=== PATIENT | female | born 1935 | race Caucasian/White ===

== ENCOUNTER 2018-01-23 15:33 | Emergency (ER) | payer MEDICARE ==
[2018-01-23 16:15] LABS: APPEARANCE CLEAR (CLEAR); BILIRUBIN NEGATIVE (NEGATIVE); COLOR YELLOW (YELLOW); GLUCOSE NEGATIVE (NEGATIVE); KETONE NEGATIVE (NEGATIVE); NITRITE NEGATIVE (NEGATIVE); PROTEIN NEGATIVE (NEGATIVE); UROBILINOGEN NORMAL (NORMAL)
[2018-01-23 16:18] LABS: BACTERIA FEW /hpf (NONE SEEN); EPITHELIAL CELLS 0-5 /hpf (0-5); WHITE CELLS - URINE 0-5 /hpf (0-5)
== END 2018-01-23 17:06 | disposition home or self-care (01) ==
LOC: D.ER 15:33
PROVIDERS: Emergency Medicine
DX: M54.5 Low back pain (principal); N39.0 Urinary tract infection, site not specified; F17.200 Nicotine dependence, unspecified, uncomplicated

== ENCOUNTER 2019-01-07 11:20 | Inpatient (IN) | payer MEDICARE, BC ==
[~2019-01-07] VITALS: Ht 162.6 cm; Wt 47.6 kg
[2019-01-07 15:04] LABS: BASOPHILS 0.4 % (0-2); EOSINOPHILS 7.2 % (0-7); HEMATOCRIT 39.8 % (36.0-48.0); HEMOGLOBIN 13.2 g/dL (12-16); IMMATURE GRANULOCYTES 0.3 % (0-5); LYMPHOCYTES 27.1 % (15-50); MCH 31.3 pg (26.0-34.0); MCHC 33.2 g/dL (31.0-37.0); MCV 94.3 fL (80.0-100.0); MONOCYTES 10.1 % (2-11); NEUTROPHILS 54.9 % (40-80); PLATELET COUNT 261 10x3/uL (130-400); RBC 4.22 10x6/uL (4.00-5.40); WBC 11.3 10x3/uL (4.8-10.8)
[2019-01-07 15:11] LABS: APTT 25.3 SECONDS (22.8-39.4); INR 1.1 (0.85-1.17); PROTIME 13.7 SECONDS (11.6-15.0)
[2019-01-07 15:16] LABS: ALBUMIN 3.3 g/dL (3.4-5.0); ANION GAP 11.2 mmol/L (8-16); BILIRUBIN - TOTAL 0.84 mg/dL (0.2-1.3); CALCIUM 8.6 mg/dL (8.5-10.1); CARBON DIOXIDE 27.7 mmol/L (21.0-32.0); CREATININE - SERUM 1.1 mg/dL (0.6-1.3); POTASSIUM - SERUM 3.9 mmol/L (3.5-5.1); PROTEIN - SERUM 6.8 g/dL (6.4-8.2)
--- NOTE | 2019-01-07 18:49 | NUR ---
REPORT CALLED TO [facility].
--- NOTE | 2019-01-07 20:00 | NUR ---
PT ARRIVED TO FLOOR VIA STRETCHER. IV LEFT FA SL. HOB 30 DEGREES. MO ON. PT REFUSES YELLOW GOWN AT THIS TIME. YELLOW BAND AND NON SLIP SOCKS ON. PT STATES SOME SORENESS TO HEMATOMA ON BACK OF HEAD. PERRLA. BILAT TELEMARKETING MANAGER WNL FOR PT. PT NEEDS ASSIST W/ WALKER TO BATHROOM. BRIEFS GIVEN TO PT. PT STATES SHE HAS BEEN CONSTIPATED DUE TO PAIN MEDS SHE TAKES AT HOME. PROVIDED PT WITH TWO CUPS OF PRUNE JUICE TO TRY. PT REQUESTED AND PROVIDED ICE FOR HEAD. DENIES OTHER NEEDS AT THIS TIME. SRX2, BED LOWEST POSITION, CL IN REACH, WILL CONTINUE TO MONITOR
[2019-01-08 01:19] VITALS: BP 116/66
--- NOTE | 2019-01-08 03:00 | NUR ---
PT WAS ABLE TO HAVE MEDIUM SEMI FORMED BM. STATES THE JUICE WORKED AND SHE FEELS A LOT BETTER. PT STATES SHE HAS A HEADACHE, GAVE TYLENOL ORDERED. DENIES OTHER NEEDS AT THIS TIME. MO ON. SRX2, BED LOWEST POSITION, CL IN REACH. WILL CONTINUE TO MONITOR
[2019-01-08 03:06] VITALS: BMI 18.0
[2019-01-08] MEDS ORDERED: MAGNESIUM OXID250 MG PO (04:25)
[2019-01-08] MEDS ORDERED: ZOCOR40 MG PO (04:26)
[2019-01-08] MEDS ORDERED: CYMBALTA60 MG PO (04:26)
[2019-01-08] MEDS ORDERED: BAYER CHEWABLE81 MG PO (04:27)
[2019-01-08] MEDS ORDERED: SYNTHROID100 MCG PO (04:27)
[2019-01-08] MEDS ORDERED: STOOL SOFTENER100 M1 PO (04:28)
[2019-01-08 05:27] VITALS: BP 114/65
[2019-01-08 06:37] LABS: BASOPHILS 0.5 % (0-2); EOSINOPHILS 4.1 % (0-7); HEMATOCRIT 38.3 % (36.0-48.0); HEMOGLOBIN 12.8 g/dL (12-16); IMMATURE GRANULOCYTES 0.3 % (0-5); LYMPHOCYTES 26.6 % (15-50); MCH 31.1 pg (26.0-34.0); MCHC 33.4 g/dL (31.0-37.0); MCV 93.2 fL (80.0-100.0); MEAN PLATELET VOLUME 11.6 fL (7.4-10.4); MONOCYTES 10.1 % (2-11); NEUTROPHILS 58.4 % (40-80); PLATELET COUNT 293 10x3/uL (130-400); RBC 4.11 10x6/uL (4.00-5.40); RDW 13.8 % (11.5-14.5); WBC 11.3 10x3/uL (4.8-10.8)
[2019-01-08 07:31] LABS: ALBUMIN 3.1 g/dL (3.4-5.0); BILIRUBIN - TOTAL 0.68 mg/dL (0.2-1.3); CALCIUM 8.3 mg/dL (8.5-10.1); POTASSIUM - SERUM 3.5 mmol/L (3.5-5.1); PROTEIN - SERUM 6.7 g/dL (6.4-8.2)
[2019-01-08 07:32] LABS: ANION GAP 19.2 mmol/L (8-16); CARBON DIOXIDE 19.3 mmol/L (21.0-32.0)
[2019-01-08 09:19] VITALS: BP 122/68
--- NOTE | 2019-01-08 10:41 | NUR ---
GRANDDAUGHTER STATES PATIENT LIVES ALONE. FAMILY WOULD LOVE FOR HER TO GO A REHAB. BUT MEDICARE WON'T PAY FOR IT UNLESS SHE IS IN THE HOSPITAL FOR 3 CONSECUTIVE NIGHTS
--- NOTE | 2019-01-08 12:25 | NUR ---
ORTHOSTATIC BLOOD PRESSURES TAKEN LAYIN/68 P 80 SITTIN/81 P99 STANDIN/74 P110
[2019-01-08 14:25] VITALS: BP 138/68
[2019-01-08 14:33] LABS: APPEARANCE CLEAR (CLEAR); COLOR YELLOW (YELLOW); GLUCOSE NEGATIVE (NEGATIVE); KETONE SMALL mg/dL (NEGATIVE); NITRITE NEGATIVE (NEGATIVE); PROTEIN NEGATIVE (NEGATIVE)
[2019-01-08 14:34] LABS: BILIRUBIN NEGATIVE (NEGATIVE); UROBILINOGEN NORMAL (NORMAL)
[2019-01-08 18:05] VITALS: BP 151/76
--- NOTE | 2019-01-08 19:00 | NUR ---
PT ALERT WHEN ENTERING ROOM. PT HAS BOUTS OF CONFUSION. ATTEMPTS TO GET OUT OF BED SEVERAL TIMES. SPOKE WITH PT ABOUT FALL PRECAUTIONS AND TO ALWAYS USE CALL LIGHT. PT AGREES BUT CONTINUALLY TRIES TO GET UP. MO ALARM, YELLOW GOWN, NON SKID SOCKS ARE IN PLACE. PT HAS WALKER AND USES WHEN ATTEMPTING TO AMBULATE. IV TO THE LEFT FOREARM THAT IS SALINE LOCKED. CPOC.
[2019-01-08 20:00] VITALS: BP 127/69
--- NOTE | 2019-01-08 22:27 | NUR ---
ADMINSTERED HS MEDICATIONS. PT RECEIVED BED BATH. TOLERATED BOTH BATH AND SCHEDULED MEDICATIONS WELL. MO ALARM ON. DOOR OPEN. EDUCATED PT ONCE AGAIN TO ALWAYS USE CALL LIGHT WHEN IN NEED OF ASSISTANCE. PT VERBALIZES UNDERSTANDING. FALL PRECAUTIONS REMAIN IN PLACE.
--- NOTE | 2019-01-08 22:46 | NUR ---
PT REFUSES CLUB ROOM ATTENDANT. STATES ITS TOO HARD FOR HER TO WALK WITH IT AND IT IS SO HEAVY.
[2019-01-09] VITALS: BP 130/71
[2019-01-09 04:00] VITALS: BP 132/68
--- NOTE | 2019-01-09 04:06 | NUR ---
I have reviewed this patient and I concur with the Shift Assessment completed by the Licensed Practical Nurse today this shift.
[2019-01-09 05:00] LABS: BASOPHILS 0.6 % (0-2); EOSINOPHILS 4.3 % (0-7); HEMOGLOBIN 13.3 g/dL (12-16); IMMATURE GRANULOCYTES 0.2 % (0-5); LYMPHOCYTES 33.1 % (15-50); MCH 31.1 pg (26.0-34.0); MCHC 34.1 g/dL (31.0-37.0); MONOCYTES 12.6 % (2-11); NEUTROPHILS 49.2 % (40-80); PLATELET COUNT 270 10x3/uL (130-400); RBC 4.28 10x6/uL (4.00-5.40); RDW 13.7 % (11.5-14.5); WBC 10.4 10x3/uL (4.8-10.8)
[2019-01-09 05:06] LABS: MCV 91.1 fL (80.0-100.0)
[2019-01-09 05:12] LABS: ANION GAP 13.9 mmol/L (8-16); CALCIUM 8.7 mg/dL (8.5-10.1); CARBON DIOXIDE 23.2 mmol/L (21.0-32.0); POTASSIUM - SERUM 3.1 mmol/L (3.5-5.1)
[2019-01-09 10:10] VITALS: BP 112/67
--- NOTE | 2019-01-09 14:09 | NUR ---
rehab prescreen: thank you for this eval, this would benifit from therapy but h doesnt have a required rehab need to be covered by insurance. if any thing changes the feel free to reconsult us. thank you once again for this eval. hawa harvey lpn clinical liasion
[2019-01-09 14:23] VITALS: BP 132/70
--- NOTE | 2019-01-09 14:46 | MORECARE ---
CASE MANAGEMENT DISCHARGE SUMMARY PATIENT: ERIK CORNEJO UNIT: [id number] ADM DATE: 01/07/19 AGE: 83 : 36 SEX: F ROOM/BED: D.2205 AUTHOR: BONITA HINKLE PHYSICIAN: REFERRING PHYSICIAN: BISHOP PANG MD DATE OF SERVICE: 01/09/19 Discharge Plan Patient Name: ERIK CORNEJO [facility] : 1935 Planned Disposition: Inpatient Rehab Facility Anticipated Discharge Date: Discharge Date: Expected LOS: Initial Reviewer: [email or web address] Initial Review Date: 01/08/2019 Generated: 01/09/19 3:46 pm Comments DCP- Discharge Planning Updated by [email or web address]: Yina Slater on 01/08/19 6:[address] DISCHARGE PLANNING CONSULT RECEIVED. WILL ASSESS PATIENT IN THE AM. WOULD PREFER TO HAVE FAMILY PRESENT WITH PATIENT'S PERMISSION. Patient Name: ERIK CORNEJO Page [id number] at 1446 All edits/amendments must be made on the electronic document DICTATION DATE: 01/09/19 1445 ASSEMBLY MACHINE OPERATOR: PAMELA 01/09/19 1445 RPT#: [id number] DC DATE: STATUS: ADM IN [facility] [address] [place] [address] END OF REPORT
--- NOTE | 2019-01-09 14:53 | MORECARE ---
CASE MANAGEMENT DISCHARGE SUMMARY PATIENT: ERIK CORNEJO UNIT: [id number] ADM DATE: 01/07/19 AGE: 83 : 36 SEX: F ROOM/BED: D.2205 AUTHOR: BONITA HINKLE PHYSICIAN: REFERRING PHYSICIAN: BISHOP PANG MD DATE OF SERVICE: 01/09/19 Discharge Plan Patient Name: ERIK CORNEJO [facility] [facility] 1935 Planned Disposition: Inpatient Rehab Facility Anticipated Discharge Date: Discharge Date: Expected LOS: Initial Reviewer: [email or web address] Initial Review Date: 01/08/2019 Generated: 01/09/19 3:53 pm Comments DCP- Discharge Planning Updated by [id number]: Yina Slater on 01/09/19 1:[address] PHOEBE BERGER, PT'S GRANDDAUGHTER, WOULD LIKE PATIENT SCREENED FOR ACUTE REHAB. PT/OT/SPEECH EVALS HAVE BEEN ORDERED. [facility] HAS REVIEWED AND DECLINED. CM CALLED THE GRANDDAUGHTER TO GET PERMISSION FOR REFERRAL TO [facility]. A CHILD ANSWERED THEN IT WENT TO VOICE MAIL. CM LEFT VM MESSAGE. AWAIT CALL BACK. PATIENT REMAINS ORTHOSTATIC. PLS REFERENCE PRIMARY NURSE'S READINGS. DCP- Discharge Planning Updated by [id number]: Yina Slater on 01/08/19 6:[address] DISCHARGE PLANNING CONSULT RECEIVED. WILL ASSESS PATIENT IN THE AM. WOULD PREFER TO HAVE FAMILY PRESENT WITH PATIENT'S PERMISSION. Patient Name: ERIK CORNEJO Page [phone] at 1453 All edits/amendments must be made on the electronic document DICTATION DATE: 01/09/191451 STRUCTURAL METAL WORKER: PAMELA 01/09/191451 RPT#: [id number] DC DATE: STATUS: ADM IN [facility] [address] [place] [address] END OF REPORT
[2019-01-09 16:00] VITALS: BP 141/76
--- NOTE | 2019-01-09 18:17 | MORECARE ---
CASE MANAGEMENT DISCHARGE SUMMARY PATIENT: ERIK CORNEJO UNIT: [id number] ADM DATE: 01/09/19 AGE: 83 : 36 SEX: F ROOM/BED: D.2205 AUTHOR: ARIN,DOC PHYSICIAN: REFERRING PHYSICIAN: BISHOP PANG MD DATE OF SERVICE: 01/09/19 Discharge Plan Patient Name: ERIK CORNEJO Facility: [facility]:[place] : 1935 Planned Disposition: Inpatient Rehab Facility Anticipated Discharge Date: Discharge Date: Expected LOS: Initial Reviewer: [email or web address] Initial Review Date: 01/08/2019 Generated: 01/09/19 7:16 pm Comments DCP- Discharge Planning Updated by [email or web address]: Yina Slater on 01/09/19 5:[address] RECEIVED CALL BACK FROM PHOEBE BERGER. EXPLAINED [facility] HAD DECLINED ADMISSION. DISCUSSED [facility]. SHE WOULD LIKE TO VISIT BEFORE GIVING CONSENT. RECEIVED CALL FROM MS BERGER. SHE IS REQUESTING A REFERRAL BE SENT TO [facility]. CM WENT TO THE PATIENT'S ROOM. EXPLAINED HER GRANDDAUGHTER HAD REQUESTED REFERRAL FOR REHAB BE SENT TO [facility] IN [place]. THE SMILED AND THAT WOULD BE FINE. SHE GAVE CONSENT. TC TO [facility] AND SPOKE W/ RINA. FAXED REFERRAL FOR REVIEW IN THE AM. DCP- Discharge Planning Updated by [id number]: Yina Slater on 01/09/19 1:[address] PHOEBE BERGER, PT'S GRANDDAUGHTER, WOULD LIKE PATIENT SCREENED FOR ACUTE REHAB. PT/OT/SPEECH EVALS HAVE BEEN ORDERED. [facility] HAS REVIEWED AND DECLINED. CM CALLED THE GRANDDAUGHTER TO GET PERMISSION FOR REFERRAL TO [facility]. A CHILD ANSWERED THEN IT WENT TO VOICE MAIL. CM LEFT VM MESSAGE. AWAIT CALL BACK. PATIENT REMAINS ORTHOSTATIC. PLS REFERENCE PRIMARY NURSE'S READINGS. DCP- Discharge Planning Updated by [email or web address]: Yina Slater on 01/08/19 6:[address] DISCHARGE PLANNING CONSULT RECEIVED. WILL ASSESS PATIENT IN THE AM. WOULD PREFER TO HAVE FAMILY PRESENT WITH PATIENT'S PERMISSION. Last DP export: 01/09/19 1:53 p Patient Name: ERIK CORNEJO Page [id number] at 1817 All edits/amendments must be made on the electronic document DICTATION DATE: 01/09/191815 CUSTOM TAILOR APPRENTICE: PAMELA 01/09/191815 RPT#: [id number] DC DATE: STATUS: ADM IN [facility] [address] [place] [address] END OF REPORT
--- NOTE | 2019-01-09 19:45 | NUR ---
PT SITTING UP IN BED, NO SIGNS OF DISTRESS. ALERT AND ORIENTED. IV LEFT FA SL. DENIES NEEDS OR PAIN. MO ON. CL IN REACH, WILL CONT TO MONITOR
[2019-01-09 20:00] VITALS: BP 119/65
[2019-01-10] VITALS: BP 124/59
[2019-01-10 03:00] VITALS: BP 130/63
--- NOTE | 2019-01-10 05:00 | NUR ---
PT REFUSED AM LABS AND TO TAKE SYNTHROID. WANTS TO BE LEFT ALONE. WILL CONT TO MONITOR
--- NOTE | 2019-01-10 08:00 | NUR ---
MORNING ASSESSMENT COMPLETE. SEE ASSESSMENT FLOWSHEET FOR FURTHER DETAILS. PT LYING IN BED AAO X4 TO PERSON, PLACE, TIME, AND SITATUION. DENIES NEEDS AT THSI TIME. CL IN REACH. SIDE RAILS UP X3 FOR PATIENT SAFTY.
[2019-01-10 09:23] VITALS: BP 134/75
--- NOTE | 2019-01-10 10:18 | MORECARE ---
CASE MANAGEMENT DISCHARGE SUMMARY PATIENT: ERIK CORNEJO UNIT: [id number] ADM DATE: 01/09/19 AGE: 83 : 36 SEX: F ROOM/BED: D.2205 AUTHOR: ARIN,DOC PHYSICIAN: REFERRING PHYSICIAN: BISHOP PANG MD DATE OF SERVICE: 01/10/19 Discharge Plan Patient Name: ERIK CORNEJO Facility: [facility]:[place] : 1935 Planned Disposition: Inpatient Rehab Facility Anticipated Discharge Date: Discharge Date: Expected LOS: Initial Reviewer: [id number] Initial Review Date: 01/08/2019 Generated: 01/10/19 11:18 am Comments DCP- Discharge Planning Updated by [id number]: Cammy Adams on 01/10/19 9:[address] Patient Name: ERIK CORNEJO Admission Status: ER Accout number: [id number] Admission Date: 01-09-2019 : 1935 Admission Diagnosis: Attending: BISHOP PANG Current LOS: 1 Anticipated DC Date: Planned Disposition: Inpatient Rehab Facility Primary Insurance: MEDICARE A & B Discharge Planning Comments: CM RECEIVED CALL FROM [facility] AND THEY WILL NEED A TIM ON THE PATIENT. Occupational Therapist Home Based: Cammy Adams DCP- Discharge Planning Updated by [email or web address]: Yina Slater on 01/09/19 5:[address] RECEIVED CALL BACK FROM PHOEBE BERGER. EXPLAINED [facility] HAD DECLINED ADMISSION. DISCUSSED [facility]. SHE WOULD LIKE TO VISIT BEFORE GIVING CONSENT. RECEIVED CALL FROM MS BERGER. SHE IS REQUESTING A REFERRAL BE SENT TO [facility]. CM WENT TO THE PATIENT'S ROOM. EXPLAINED HER GRANDDAUGHTER HAD REQUESTED REFERRAL FOR REHAB BE SENT TO [facility] IN [facility]. THE SMILED AND THAT WOULD BE FINE. SHE GAVE CONSENT. TC TO [facility] AND SPOKE W/ RINA. FAXED REFERRAL FOR REVIEW IN THE AM. DCP- Discharge Planning Updated by [id number]: Yina Slater on 01/09/19 1:[address] PHOEBE BERGER, PT'S GRANDDAUGHTER, WOULD LIKE PATIENT SCREENED FOR ACUTE REHAB. PT/OT/SPEECH EVALS HAVE BEEN ORDERED. [facility] HAS REVIEWED AND DECLINED. CM CALLED THE GRANDDAUGHTER TO GET PERMISSION FOR REFERRAL TO [facility]. A CHILD ANSWERED THEN IT WENT TO VOICE MAIL. CM LEFT VM MESSAGE. AWAIT CALL BACK. PATIENT REMAINS ORTHOSTATIC. PLS REFERENCE PRIMARY NURSE'S READINGS. DCP- Discharge Planning Updated by [id number]: Yina Slater on 01/08/19 6:[address] DISCHARGE PLANNING CONSULT RECEIVED. WILL ASSESS PATIENT IN THE AM. WOULD PREFER TO HAVE FAMILY PRESENT WITH PATIENT'S PERMISSION. Last DP export: 01/09/19 5:17 p Patient Name: ERIK CORNEJO Page [phone] at 1018 All edits/amendments must be made on the electronic document DICTATION DATE: 01/10/19 1017 HUMAN RESOURCES TRAINING MANAGER: PAMELA 01/10/19 1017 RPT#: [id number] DC DATE: STATUS: ADM IN [facility] [address] [place] [address] END OF REPORT
--- NOTE | 2019-01-10 10:50 | NUR ---
EDUCATED FALL RISKS TO PT. FOUND GETTING UP. ALL FALL PRECAUTIONS IN PLACE
[2019-01-10 12:16] LABS: BASOPHILS 0.4 % (0-2); EOSINOPHILS 4.3 % (0-7); HEMATOCRIT 41.4 % (36.0-48.0); HEMOGLOBIN 14.3 g/dL (12-16); IMMATURE GRANULOCYTES 0.4 % (0-5); LYMPHOCYTES 28.5 % (15-50); MCH 31.7 pg (26.0-34.0); MCHC 34.5 g/dL (31.0-37.0); MCV 91.8 fL (80.0-100.0); MEAN PLATELET VOLUME 10.9 fL (7.4-10.4); MONOCYTES 9.4 % (2-11); PLATELET COUNT 288 10x3/uL (130-400); RBC 4.51 10x6/uL (4.00-5.40); RDW 13.8 % (11.5-14.5); WBC 11.5 10x3/uL (4.8-10.8)
[2019-01-10 12:27] LABS: ANION GAP 15.2 mmol/L (8-16); CALCIUM 8.9 mg/dL (8.5-10.1); CARBON DIOXIDE 23.3 mmol/L (21.0-32.0); CREATININE - SERUM 0.9 mg/dL (0.6-1.3); POTASSIUM - SERUM 3.5 mmol/L (3.5-5.1)
[2019-01-10 13:49] VITALS: BP 139/77
[2019-01-10 18:34] VITALS: BP 125/74
--- NOTE | 2019-01-10 19:42 | NUR ---
PT ALERT WHEN ENTERING THE ROOM. PT ORIENTED TO SELF AND PLACE BUT UNSURE OF DAY OF THE WEEK. PT FALL PRECAUTIONS IN PLACE PT TRIES TO DO FOR SELF. SUSTAINED A FALL AT HOME. SPOKE WITH PT ABOUT USING CALL LIGHT TO AVOID ANOTHER FALL. PT VERBALIZES UNDERSTANDING BUT THIS NURSE HAS MO ALARM ON. YELLOW GOWN AND BRACELET ON, WELL NON SKID SOCKS. PT USES WALKER FOR AMBULATION ASSISTANCE. PT DOES HAVE HEARING IMPAIRMENT. DOES NOT HAVE COMPLAINTS OF PAIN AT THIS TIME. LIFE ALERT NECKLACE ON. WELL CALL LIGHT IN REACH. ASSISTED PT TO BATHROOM AND RETURNED BACK TO BED. DENIES FURTHER NEEDS AT THIS TIME. CPOC.
[2019-01-10 21:09] VITALS: BP 95/50
[2019-01-11 00:23] VITALS: BP 122/77
--- NOTE | 2019-01-11 03:06 | NUR ---
I have reviewed this patient and I concur with the Shift Assessment completed by the Licensed Practical Nurse today this shift.
[2019-01-11 05:09] VITALS: BP 112/64
--- NOTE | 2019-01-11 06:43 | NUR ---
PT REFUSED LAB DRAW ATTEMPTS X 2.
--- NOTE | 2019-01-11 08:00 | NUR ---
MORNING ASSESSMENT COMLPETE. SEE ASSESSMENT FLOWSHEET FOR FURTHER DETAILS. PT LYING IN BED AAO X4 TO PERSON, PLACE, TIME, AND SITUATION. DENIES NEEDS AT THIS TIME. CL IN REACH
[2019-01-11 08:12] VITALS: BP 120/74
[2019-01-11 12:25] VITALS: BP 119/69
[2019-01-11 14:37] LABS: BASOPHILS 0.4 % (0-2); EOSINOPHILS 3.2 % (0-7); HEMATOCRIT 42.6 % (36.0-48.0); HEMOGLOBIN 14.5 g/dL (12-16); IMMATURE GRANULOCYTES 0.3 % (0-5); LYMPHOCYTES 22.7 % (15-50); MCH 31.9 pg (26.0-34.0); MEAN PLATELET VOLUME 11.8 fL (7.4-10.4); NEUTROPHILS 63.4 % (40-80); PLATELET COUNT 306 10x3/uL (130-400); RBC 4.54 10x6/uL (4.00-5.40); RDW 14.1 % (11.5-14.5)
[2019-01-11 14:40] LABS: MCV 93.8 fL (80.0-100.0); WBC 14.4 10x3/uL (4.8-10.8)
[2019-01-11 14:56] LABS: CALCIUM 8.7 mg/dL (8.5-10.1); CARBON DIOXIDE 25.4 mmol/L (21.0-32.0); CREATININE - SERUM 1.1 mg/dL (0.6-1.3); POTASSIUM - SERUM 3.4 mmol/L (3.5-5.1)
[2019-01-11 16:30] VITALS: BP 121/77
--- NOTE | 2019-01-11 19:25 | NUR ---
PT ALERT AND ORIENTED. ALL FALL PRECAUTIONS IN PLACE. LEFT WRIST IV SL. CALL LIGHT IN REACH. CPOC.
[2019-01-11 21:05] VITALS: BP 119/75
--- NOTE | 2019-01-12 02:04 | NUR ---
I have reviewed this patient and I concur with the Shift Assessment completed by the Licensed Practical Nurse today this shift.
[2019-01-12 04:43] VITALS: BP 124/70
--- NOTE | 2019-01-12 07:15 | MORECARE ---
CASE MANAGEMENT DISCHARGE SUMMARY PATIENT: ERIK CORNEJO UNIT: [id number] ADM DATE: 01/09/19 AGE: 83 : 36 SEX: F ROOM/BED: D.2205 AUTHOR: ARIN,DOC PHYSICIAN: REFERRING PHYSICIAN: BISHOP PANG MD DATE OF SERVICE: 01/12/19 Discharge Plan Patient Name: ERIK CORNEJO Facility: [facility]:[place] : 1935 Planned Disposition: Inpatient Rehab Facility Anticipated Discharge Date: Discharge Date: Expected LOS: Initial Reviewer: [email or web address] Initial Review Date: 01/08/2019 Generated: 01/12/19 8:14 am Comments DCP- Discharge Planning Updated by [id number]: Cammy Adams on 01/10/19 9:[address] Patient Name: ERIK CORNEJO Admission Status: ER Accout number: [id number] Admission Date: 01-09-2019 : 1935 Admission Diagnosis: Attending: BISHOP PANG Current LOS: 1 Anticipated DC Date: Planned Disposition: Inpatient Rehab Facility Primary Insurance: MEDICARE A & B Discharge Planning Comments: CM RECEIVED CALL FROM [facility] AND THEY WILL NEED A TIM ON THE PATIENT. Peanut Picker: Cammy Adams DCP- Discharge Planning Updated by [id number]: Yina Slater on 01/09/19 5:[address] RECEIVED CALL BACK FROM PHOEBE BERGER. EXPLAINED [facility] HAD DECLINED ADMISSION. DISCUSSED [facility]. SHE WOULD LIKE TO VISIT BEFORE GIVING CONSENT. RECEIVED CALL FROM MS BERGER. SHE IS REQUESTING A REFERRAL BE SENT TO [facility]. CM WENT TO THE PATIENT'S ROOM. EXPLAINED HER GRANDDAUGHTER HAD REQUESTED REFERRAL FOR REHAB BE SENT TO [facility] IN [facility]. THE SMILED AND THAT WOULD BE FINE. SHE GAVE CONSENT. TC TO [facility] AND SPOKE W/ RINA. FAXED REFERRAL FOR REVIEW IN THE AM. DCP- Discharge Planning Updated by [id number]: Yina Slater on 01/09/19 1:[address] PHOEBE BERGER, PT'S GRANDDAUGHTER, WOULD LIKE PATIENT SCREENED FOR ACUTE REHAB. PT/OT/SPEECH EVALS HAVE BEEN ORDERED. [facility] HAS REVIEWED AND DECLINED. CM CALLED THE GRANDDAUGHTER TO GET PERMISSION FOR REFERRAL TO [facility]. A CHILD ANSWERED THEN IT WENT TO VOICE MAIL. CM LEFT VM MESSAGE. AWAIT CALL BACK. PATIENT REMAINS ORTHOSTATIC. PLS REFERENCE PRIMARY NURSE'S READINGS. DCP- Discharge Planning Updated by [id number]: Yina Slater on 01/08/19 6:[address] DISCHARGE PLANNING CONSULT RECEIVED. WILL ASSESS PATIENT IN THE AM. WOULD PREFER TO HAVE FAMILY PRESENT WITH PATIENT'S PERMISSION. External Providers External Provider: TIMTIM Reid Next Contact Date: Service Request Date: Service Type: Resolution: Reviewer: Comments: Last DP export: 01/10/19 9:18 a Patient Name: ERIK CORNEJO Page [phone] at 0715 All edits/amendments must be made on the electronic document DICTATION DATE: 01/12/19713 SUPERVISOR CAPACITOR PROCESSING: PAMELA 01/12/19713 RPT#: [id number] DC DATE: STATUS: ADM IN [facility] [address] [place] [address] END OF REPORT
--- NOTE | 2019-01-12 07:34 | MORECARE ---
CASE MANAGEMENT DISCHARGE SUMMARY PATIENT: ERIK CORNEJO UNIT: [id number] ADM DATE: 01/09/19 AGE: 83 : 36 SEX: F ROOM/BED: D.2205 AUTHOR: ARIN,DOC PHYSICIAN: REFERRING PHYSICIAN: BISHOP PANG MD DATE OF SERVICE: 01/12/19 Discharge Plan Patient Name: ERIK CORNEJO Facility: [facility]:[place] : 1935 Planned Disposition: Inpatient Rehab Facility Anticipated Discharge Date: Discharge Date: Expected LOS: Initial Reviewer: [id number] Initial Review Date: 01/08/2019 Generated: 01/12/19 8:34 am Comments DCP- Discharge Planning Updated by [id number]: Cammy Adams on 01/10/19 9:[address] Patient Name: ERIK CORNEJO Admission Status: ER Accout number: [id number] Admission Date: 01-09-2019 : 1935 Admission Diagnosis: Attending: BISHOP PANG Current LOS: 1 Anticipated DC Date: Planned Disposition: Inpatient Rehab Facility Primary Insurance: MEDICARE A & B Discharge Planning Comments: CM RECEIVED CALL FROM [facility] AND THEY WILL NEED A TIM ON THE PATIENT. Reprint Sorter: Cammy Adams DCP- Discharge Planning Updated by [email or web address]: Yina Slater on 01/09/19 5:[address] RECEIVED CALL BACK FROM PHOEBE BERGER. EXPLAINED [facility] HAD DECLINED ADMISSION. DISCUSSED [facility]. SHE WOULD LIKE TO VISIT BEFORE GIVING CONSENT. RECEIVED CALL FROM MS BERGER. SHE IS REQUESTING A REFERRAL BE SENT TO [facility]. CM WENT TO THE PATIENT'S ROOM. EXPLAINED HER GRANDDAUGHTER HAD REQUESTED REFERRAL FOR REHAB BE SENT TO [facility] IN [facility]. THE SMILED AND THAT WOULD BE FINE. SHE GAVE CONSENT. TC TO [facility] AND SPOKE W/ RINA. FAXED REFERRAL FOR REVIEW IN THE AM. DCP- Discharge Planning Updated by [id number]: Yina Slater on 01/09/19 1:[address] PHOEBE BERGER, PT'S GRANDDAUGHTER, WOULD LIKE PATIENT SCREENED FOR ACUTE REHAB. PT/OT/SPEECH EVALS HAVE BEEN ORDERED. [facility] HAS REVIEWED AND DECLINED. CM CALLED THE GRANDDAUGHTER TO GET PERMISSION FOR REFERRAL TO [facility]. A CHILD ANSWERED THEN IT WENT TO VOICE MAIL. CM LEFT VM MESSAGE. AWAIT CALL BACK. PATIENT REMAINS ORTHOSTATIC. PLS REFERENCE PRIMARY NURSE'S READINGS. DCP- Discharge Planning Updated by [id number]: Yina Slater on 01/08/19 6:[address] DISCHARGE PLANNING CONSULT RECEIVED. WILL ASSESS PATIENT IN THE AM. WOULD PREFER TO HAVE FAMILY PRESENT WITH PATIENT'S PERMISSION. External Providers External Provider: [facility] Next Contact Date: Service Request Date: Service Type: Resolution: Reviewer: Comments: Last DP export: 01/12/19 6:15 a Patient Name: ERIK CORNEJO Page [phone] at 0734 All edits/amendments must be made on the electronic document DICTATION DATE: 01/12/19732 IT NETWORK ARCHITECT: PAMELA 01/12/19732 RPT#: [id number] DC DATE: STATUS: ADM IN [facility] [address] [place] [address] END OF REPORT
--- NOTE | 2019-01-12 08:00 | NUR ---
MORNING ASSESSMENT COMPLETE. SEE ASSESSMENT FLWOSHEET FOR FURTHER DETAILS. PT LYING IN BED AAO X4 TO PERSON, PLACE, TIME, AND SITUATION. REQUESTS ASSISTANCE TO BR- PT WALKED WELL WITH ASSISTANCE. DENIES FURTHER NEEDS AT THIS TIME. CL IN REACH
[2019-01-12 08:47] VITALS: BP 121/71
[2019-01-12 09:22] LABS: BASOPHILS 0.6 % (0-2); EOSINOPHILS 7.5 % (0-7); HEMATOCRIT 42.1 % (36.0-48.0); HEMOGLOBIN 14.4 g/dL (12-16); IMMATURE GRANULOCYTES 0.4 % (0-5); MCH 31.7 pg (26.0-34.0); MCHC 34.2 g/dL (31.0-37.0); MCV 92.7 fL (80.0-100.0); MEAN PLATELET VOLUME 11.2 fL (7.4-10.4); NEUTROPHILS 56.5 % (40-80); PLATELET COUNT 282 10x3/uL (130-400); RBC 4.54 10x6/uL (4.00-5.40); RDW 13.9 % (11.5-14.5)
[2019-01-12 09:32] LABS: CALCIUM 9.1 mg/dL (8.5-10.1); CREATININE - SERUM 1.1 mg/dL (0.6-1.3)
--- NOTE | 2019-01-12 10:34 | NUR ---
NUTRITION F/U CHART REVIEWED. PT VISIT. NOT EATING MUCH BUT IS DRINKING BOOST WITH MEALS. WILL CONTINUE TO ENCOURAGE PO INTAKE, PROVIDE MIGUEL ÁNGEL BOOST. RD FOLLOWING
[2019-01-12 12:49] VITALS: BP 108/67
[2019-01-12 16:48] VITALS: BP 115/77
--- NOTE | 2019-01-12 20:07 | NUR ---
AWAKE,ALERT.NO COMPLAINTS VOICED. RESP EVEN AND UNLABORED. NO DISTRESS NOTED. SL TO LFA INTACT WITHOUT REDNESS OR EDEMA NOTED. FALL PRECAUTIONS IN PLACE CALL LIGHT IN REACH
[2019-01-12 21:03] VITALS: BP 122/71
[2019-01-13 00:10] VITALS: BP 134/74
[2019-01-13 04:45] VITALS: BP 120/84
--- NOTE | 2019-01-13 04:48 | NUR ---
PT IN BED IN LOW FOWLERS POSITION. REPIRATIONS EVEN AND UNLABORED. VITAL SIGNS STABLE AND AFEBRILE. NO VISUAL CUES OF DISTRESS NOTED. DENIES ANY OTHER NEEDS AT THIS TIME. BED LOW, SIDE RAILS UP X2. CALL LIGHT IN REACH. WILL CONTINUE TO MONITOR.
[2019-01-13 06:01] LABS: BASOPHILS 0.7 % (0-2); EOSINOPHILS 8.8 % (0-7); HEMOGLOBIN 13.5 g/dL (12-16); IMMATURE GRANULOCYTES 0.5 % (0-5); LYMPHOCYTES 27.3 % (15-50); MCH 31.2 pg (26.0-34.0); MCHC 33.8 g/dL (31.0-37.0); MCV 92.4 fL (80.0-100.0); MEAN PLATELET VOLUME 11.9 fL (7.4-10.4); MONOCYTES 13.6 % (2-11); NEUTROPHILS 49.1 % (40-80); PLATELET COUNT 291 10x3/uL (130-400); RBC 4.33 10x6/uL (4.00-5.40); RDW 13.9 % (11.5-14.5); WBC 12.8 10x3/uL (4.8-10.8)
[2019-01-13 06:24] LABS: ANION GAP 14.9 mmol/L (8-16); CALCIUM 8.5 mg/dL (8.5-10.1); CREATININE - SERUM 1.2 mg/dL (0.6-1.3); POTASSIUM - SERUM 3.9 mmol/L (3.5-5.1)
--- NOTE | 2019-01-13 08:15 | NUR ---
AWAKE AND ALERT. ORIENTED X3. REPORTS HEADACHE IMPROVED AT THIS TIME. LUNGS ARE CLEAR BILATERALLY, NO COUGH NOTED. SKIN IS INTACT WITHOUT REDNESS. SL TO LEFT WRIST AREA IS PATETN WITHOUT REDNESS AT INSERTION SITE. DENIES NEEDS. BREAKFAST SERVED IN ROOM.
--- NOTE | 2019-01-13 09:00 | NUR ---
ATE MOST OF BREAKFAST AND DRANK A BOOST. DENIES NEEDS.
[2019-01-13 10:08] VITALS: BP 125/60
--- NOTE | 2019-01-13 11:02 | MORECARE ---
CASE MANAGEMENT DISCHARGE SUMMARY PATIENT: ERIK CORNEJO UNIT: [id number] ADM DATE: 01/09/19 AGE: 83 : 36 SEX: F ROOM/BED: D.2205 AUTHOR: ARIN,DOC PHYSICIAN: REFERRING PHYSICIAN: BISHOP PANG MD DATE OF SERVICE: 01/13/19 Discharge Plan Patient Name: ERIK CORNEJO Facility: [facility]:[place] : 1935 Planned Disposition: Inpatient Rehab Facility Anticipated Discharge Date: Discharge Date: Expected LOS: Initial Reviewer: [id number] Initial Review Date: 01/08/2019 Generated: 01/13/19 12:02 pm Comments DCP- Discharge Planning Updated by [email or web address]: Dianna Medina on 01/13/19 10:[address] SPOKE WITH EUGENIA AT [facility] AND THEY WILL ACCEPT THE PATIENT TODAY. IMM SERVED AND EXPLAINED KYLE FORM SIGNED. CM WILL CONTINUE TO FOLLOW AND ASSIST WITH DC PLANNING NEEDED DCP- Discharge Planning Updated by [id number]: Cammy Adams on 01/10/19 9:[address] Patient Name: ERIK CORNEJO Admission Status: ER Accout number: [id number] Admission Date: 01-09-2019 : 1935 Admission Diagnosis: Attending: BISHOP PANG Current LOS: 1 Anticipated DC Date: Planned Disposition: Inpatient Rehab Facility Primary Insurance: MEDICARE A & B Discharge Planning Comments: CM RECEIVED CALL FROM [facility] AND THEY WILL NEED A TIM ON THE PATIENT. Smalltalk Developer: Cammy Adams DCP- Discharge Planning Updated by [email or web address]: Yina Slater on 01/09/19 5:[address] RECEIVED CALL BACK FROM PHOEBE BERGER. EXPLAINED [facility] HAD DECLINED ADMISSION. [facility]ED [facility]. SHE WOULD LIKE TO VISIT BEFORE GIVING CONSENT. RECEIVED CALL FROM MS BERGER. SHE IS REQUESTING A REFERRAL BE SENT TO [facility]. CM WENT TO THE PATIENT'S ROOM. EXPLAINED HER GRANDDAUGHTER HAD REQUESTED REFERRAL FOR REHAB BE SENT TO [facility] IN [place]. THE SMILED AND THAT WOULD BE FINE. SHE GAVE CONSENT. TC TO [facility] AND SPOKE W/ RINA. FAXED REFERRAL FOR REVIEW IN THE AM. DCP- Discharge Planning Updated by [id number]: Yina Slater on 01/09/19 1:[address] PHOEBE BERGER, PT'S GRANDDAUGHTER, WOULD LIKE PATIENT SCREENED FOR ACUTE REHAB. PT/OT/SPEECH EVALS HAVE BEEN ORDERED. [facility] HAS REVIEWED AND DECLINED. CM CALLED THE GRANDDAUGHTER TO GET PERMISSION FOR REFERRAL TO [facility]. A CHILD ANSWERED THEN IT WENT TO VOICE MAIL. CM LEFT VM MESSAGE. AWAIT CALL BACK. PATIENT REMAINS ORTHOSTATIC. PLS REFERENCE PRIMARY NURSE'S READINGS. DCP- Discharge Planning Updated by [email or web address]: Yina Slater on 01/08/19 6:[address] DISCHARGE PLANNING CONSULT RECEIVED. WILL ASSESS PATIENT IN THE AM. WOULD PREFER TO HAVE FAMILY PRESENT WITH PATIENT'S PERMISSION. Last DP export: 01/12/19 6:34 a Patient Name: ERIK CORNEJO Page [id number] at 1102 All edits/amendments must be made on the electronic document DICTATION DATE: 01/13/191101 SKILLED NURSING PROFESSIONAL: PAMELA 01/13/19 110 RPT#: [id number] DC DATE: STATUS: ADM IN [facility] [address] [place] [address] END OF REPORT
[2019-01-13] MEDS ORDERED: ULTRAM50 MG PO (11:15)
--- NOTE | 2019-01-13 11:29 | NUR ---
UP TO BR WITH ONE PERSON ASSIST AND RW. VOIDED WITHOUT DIFFICULTY. REPOSITIONED IN BED FOR COMFORT.
--- NOTE | 2019-01-13 12:30 | NUR ---
ASSISTED TO DRESS PER STAFF. SL TO LEFT WRIST D/C WITH CATHETER INTACT. DENIES NEEDS.
--- NOTE | 2019-01-13 13:55 | MORECARE ---
CASE MANAGEMENT DISCHARGE SUMMARY PATIENT: ERIK CORNEJO UNIT: [id number] ADM DATE: 01/09/19 AGE: 83 : 36 SEX: F ROOM/BED: D.2205 AUTHOR: ARIN,DOC PHYSICIAN: REFERRING PHYSICIAN: BISHOP PANG MD DATE OF SERVICE: 01/13/19 Discharge Plan Patient Name: ERIK CORNEJO Facility: [facility]:[place] : 1935 Planned Disposition: Inpatient Rehab Facility Anticipated Discharge Date: Discharge Date: Expected LOS: Initial Reviewer: [email or web address] Initial Review Date: 01/08/2019 Generated: 01/13/19 2:55 pm Comments DCP- Discharge Planning Updated by [email or web address]: Dianna Medina on 01/13/19 12:[address] Patient will be discharging to [facility] today to a skilled bed, they will pick her up. I called and spoke with her granddaughter Ana Maria to let her know. CM will continue to follow and assist with DC planning as needed DCP- Discharge Planning Updated by [email or web address]: Dianna Medina on 01/13/19 10:[address] SPOKE WITH EUGENIA AT [facility] AND THEY WILL ACCEPT THE PATIENT TODAY. IMM SERVED AND EXPLAINED KYLE FORM SIGNED. CM WILL CONTINUE TO FOLLOW AND ASSIST WITH DC PLANNING NEEDED DCP- Discharge Planning Updated by [email or web address]: Cammy Adams on 01/10/19 9:[address] Patient Name: ERIK CORNEJO Admission Status: ER Accout number: [id number] Admission Date: 01-09-2019 : 1935 Admission Diagnosis: Attending: BISHOP PANG Current LOS: 1 Anticipated DC Date: Planned Disposition: Inpatient Rehab Facility Primary Insurance: MEDICARE A & B Discharge Planning Comments: CM RECEIVED CALL FROM [facility] AND THEY WILL NEED A TIM ON THE PATIENT. Water Restoration Technician: Cammy Adams DCP- Discharge Planning Updated by [id number]: Yina Slater on 01/09/19 5:[address] RECEIVED CALL BACK FROM ANA MARIA BERGER. EXPLAINED [facility] HAD DECLINED ADMISSION. DISCUSSED [facility]. SHE WOULD LIKE TO VISIT BEFORE GIVING CONSENT. RECEIVED CALL FROM [facility] BER[facility]. SHE IS REQUESTING A REFERRAL BE SENT TO [facility]. CM WENT TO THE PATIENT'S ROOM. EXPLAINED HER GRANDDAUGHTER HAD REQUESTED REFERRAL FOR REHAB BE SENT TO [facility] IN [place]. THE SMILED AND THAT WOULD BE FINE. SHE GAVE CONSENT. TC TO [facility] AND SPOKE W/ RINA. FAXED REFERRAL FOR REVIEW IN THE AM. DCP- Discharge Planning Updated by [id number]: Yina Slater on 01/09/19 1:[address] ANA MARIA BERGER, PT'S GRANDDAUGHTER, WOULD LIKE PATIENT SCREENED FOR ACUTE REHAB. PT/OT/SPEECH EVALS HAVE BEEN ORDERED. [facility] HAS REVIEWED AND DECLINED. CM CALLED THE GRANDDAUGHTER TO GET PERMISSION FOR REFERRAL TO [facility]. A CHILD ANSWERED THEN IT WENT TO [facility]. CM LEFT VM MESSAGE. AWAIT CALL BACK. PATIENT REMAINS ORTHOSTATIC. PLS REFERENCE PRIMARY NURSE'S READINGS. DCP- Discharge Planning Updated by [id number]: Yina Slater on 01/08/19 6:[address] DISCHARGE PLANNING CONSULT RECEIVED. WILL ASSESS PATIENT IN THE AM. WOULD PREFER TO HAVE FAMILY PRESENT WITH PATIENT'S PERMISSION. Last DP export: 01/13/19 10:02 a Patient Name: ERIK CORNEJO Page [id number] at 1357 All edits/amendments must be made on the electronic document DICTATION DATE: 01/13/19 4043 SPRING CRATER: PAMELA 01/13/19 1353 RPT#: [id number] DC DATE: STATUS: ADM IN [facility] [address] [place] [address] END OF REPORT
--- NOTE | 2019-01-13 14:05 | NUR ---
DISCHARGED TO [facility] VIA THEIR TRANSPORT. DISCHARGE INSTRUCTIONS GIVEN BOTH VERBALLY AND WRITTEN. ALL QUESTIONS ANSWERED. ALL BELONGINGS WITH PATIENT. REPORT CALLED TO HUMBERTO JUAREZ RN AT [facility]. ALL QUESTIONS ANSWERED.
--- NOTE | 2019-01-14 16:39 | MORECARE ---
CASE MANAGEMENT DISCHARGE SUMMARY PATIENT: ERIK CORNEJO UNIT: [id number] ADM DATE: 01/09/19 AGE: 83 : 36 SEX: F ROOM/BED: D.2205 AUTHOR: ARIN,DOC PHYSICIAN: REFERRING PHYSICIAN: BISHOP PANG MD DATE OF SERVICE: 01/14/19 Discharge Plan Patient Name: ERIK CORNEJO Facility: [facility]:[place] : 1935 Planned Disposition: Inpatient Rehab Facility Anticipated Discharge Date: Discharge Date: 01/13/2019 Expected LOS: 0 Initial Reviewer: [email or web address] Initial Review Date: 01/08/2019 Generated: 01/14/19 5:39 pm Comments DCP- Discharge Planning Updated by [email or web address]: Dianna Medina on 01/13/19 12:[address] Patient will be discharging to [facility] today to a skilled bed, they will pick her up. I called and spoke with her granddaughter Ana Maria to let her know. CM will continue to follow and assist with DC planning as needed DCP- Discharge Planning Updated by [id number]: Dianna Medina on 01/13/19 10:[address] SPOKE WITH EUGENIA AT [facility] AND THEY WILL ACCEPT THE PATIENT TODAY. IMM SERVED AND EXPLAINED KYLE FORM SIGNED. CM WILL CONTINUE TO FOLLOW AND ASSIST WITH DC PLANNING NEEDED DCP- Discharge Planning Updated by [id number]: Cammy Adams on 01/10/19 9:[address] Patient Name: ERIK CORNEJO Admission Status: ER Accout number: [id number] Admission Date: 01-09-2019 : 1935 Admission Diagnosis: Attending: BISHOP PANG Current LOS: 1 Anticipated DC Date: Planned Disposition: Inpatient Rehab Facility Primary Insurance: MEDICARE A & B Discharge Planning Comments: CM RECEIVED CALL FROM [facility] AND THEY WILL NEED A TIM ON THE PATIENT. Refrigeration Engine Operator: Cammy Adams DCP- Discharge Planning Updated by [email or web address]: Yina Slater on 01/09/19 5:[address] RECEIVED CALL BACK FROM ANA MARIA BERGER. EXPLAINED [facility] HAD DECLINED ADMISSION. DISCUSSED [facility]. SHE WOULD LIKE TO VISIT BEFORE GIVING CONSENT. RECEIVED CALL FROM [facility]. SHE IS REQUESTING A REFERRAL BE SENT TO [facility]. CM WENT TO THE PATIENT'S ROOM. EXPLAINED HER GRANDDAUGHTER HAD REQUESTED REFERRAL FOR REHAB BE SENT TO [facility] IN [place]. THE SMILED AND THAT WOULD BE FINE. SHE GAVE CONSENT. TC TO [facility] AND SPOKE W/ RINA. FAXED REFERRAL FOR REVIEW IN THE AM. DCP- Discharge Planning Updated by [id number]: Yina Slater on 01/09/19 1:[address] ANA MARIA BERGER, PT'S GRANDDAUGHTER, WOULD LIKE PATIENT SCREENED FOR ACUTE REHAB. PT/OT/SPEECH EVALS HAVE BEEN ORDERED. [facility] HAS REVIEWED AND DECLINED. CM CALLED THE GRANDDAUGHTER TO GET PERMISSION FOR REFERRAL TO [facility]. A CHILD ANSWERED THEN IT WENT TO [facility]. CM LEFT VM MESSAGE. AWAIT CALL BACK. PATIENT REMAINS ORTHOSTATIC. PLS REFERENCE PRIMARY NURSE'S READINGS. DCP- Discharge Planning Updated by [id number]: Yina Slater on 01/08/19 6:[address] DISCHARGE PLANNING CONSULT RECEIVED. WILL ASSESS PATIENT IN THE AM. WOULD PREFER TO HAVE FAMILY PRESENT WITH PATIENT'S PERMISSION. Last DP export: 01/13/19 12:55 p Patient Name: ERIK CORNEJO Page [id number] at 1639 All edits/amendments must be made on the electronic document DICTATION DATE: 01/14/191637 TIMBER REPAIRER: PAMELA 01/14/191637 RPT#: [id number] DC DATE:01/13/19 STATUS: DIS IN [facility] [address] [place] [address] END OF REPORT
[2019-01-17 09:02] VITALS: Ht 162.6 cm; Wt 47.6 kg
== END 2019-01-13 14:07 | DRG 86 ==
LOC: D.ER 11:20 → OBSVTIME 17:11 → D.EDHOLD 17:11 → D.MS 17:48
PROVIDERS: Family Medicine; ADMIT Internal Medicine Nephrology; ATTEND Internal Medicine Nephrology
DX: S02.0XXA Fracture of vault of skull, initial encounter for closed fracture (principal); Z68.1 Body mass index [BMI] 19.9 or less, adult; I95.1 Orthostatic hypotension; R63.0 Anorexia